=== PATIENT | male | born 1950 | race Caucasian/White ===

== ENCOUNTER 2021-03-29 17:41 | Emergency (ER) | payer MEDICARE, OTHER ==
[~2021-03-29 17:41] MED LIST: KEFLEX CAP 500500 MG PO
[2021-03-29 20:14] LABS: HEMOGLOBIN 12.5 gm/dl (14.0-17.5); WHITE BLOOD COUNT 12.4 K/UL (4.5-11.0)
== END 2021-03-29 23:50 | disposition short-term general hospital (02) ==
LOC: ER1 17:41
PROVIDERS: Family Medicine
DX: A41.9 Sepsis, unspecified organism (principal); E11.65 Type 2 diabetes mellitus with hyperglycemia; K57.90 Diverticulosis of intestine, part unspecified, without perforation or abscess without bleeding; N28.9 Disorder of kidney and ureter, unspecified; I10 Essential (primary) hypertension; Z88.2 Allergy status to sulfonamides; Z87.440 Personal history of urinary (tract) infections; F17.200 Nicotine dependence, unspecified, uncomplicated; Z20.822 Contact with and (suspected) exposure to COVID-19
CPT/HCPCS: 0240U; 71045; 80053; 81001; 83605; 83735; 84100; 85025; 87040; 87086; 96365; 99285; J2543; J7030

== ENCOUNTER → 2022-07-05 | Outpatient (CLI) | payer MEDICARE | LOC: KOH-I 08:55 | DX: N18.31 Chronic kidney disease, stage 3a (principal); N28.81 Hypertrophy of kidney; Z90.5 Acquired absence of kidney | CPT/HCPCS: 76775 ==